=== PATIENT | female | born 2000 | race Caucasian/White ===

== ENCOUNTER → 2024-10-10 | Outpatient (CLI) | payer BC, OTHER ==
[2024-10-12 11:22] LABS: APTIMA MEDIA TYPE Urine; C. TRACHOMATIS BY TMA Negative (Negative); N. GONORRHOEAE BY TMA Negative (Negative); SPECIMEN SOURCE Urine
== END ==
LOC: LAB 11:18 → LAB SHORT 11:18
PROVIDERS: Advanced Practice Midwife
DX: Z11.3 Encounter for screening for infections with a predominantly sexual mode of transmission (principal)
CPT/HCPCS: 87491; 87591

== ENCOUNTER → 2025-03-18 | Outpatient (CLI) | payer BC, OTHER | LOC: LAB 09:32 → LAB SHORT 09:32 | DX: Z34.93 Encounter for supervision of normal pregnancy, unspecified, third trimester (principal) | CPT/HCPCS: 87081; 87150 ==

== ENCOUNTER 2025-04-03 16:27 | Inpatient (IN) | payer BC, OTHER ==
[~2025-04-03] VITALS: Ht 162.6 cm; Wt 76.3 kg
[2025-04-03] VITALS (12 sets, daily range): BP systolic 129–147; BP diastolic 71–94
[2025-04-03] MEDS ORDERED: Methylergonovine Maleate 0.2MG / ML 1ML Amp IM PRN (16:50)
[2025-04-03] MEDS ORDERED: Carboprost Tromethamine 250 MCG/ML 1ML Amp IM PRN (16:50)
[2025-04-03] MEDS ORDERED: Ondansetron HCl 2 MG / ML 2ML Vial IV PRN (16:50)
[2025-04-03] MEDS ORDERED: OXYTOCIN/RINGER'S LACTATE 500 ML IV PRN (16:50)
[2025-04-03] MEDS ORDERED: Tranexamic Acid 100 ML IV SCH (16:50)
[2025-04-03] MEDS ORDERED: Oxytocin 10 Unit / ML Vial IM PRN (16:50)
[2025-04-03] MEDS ORDERED: FentaNYL Citrate 50 MCG/ML 2 ML Injection IV PRN (16:50)
[2025-04-03] MEDS ORDERED: ePHEDrine Sulfate 50 MG/ML 1ML Injection XX PRN (16:55)
[2025-04-03] MEDS ORDERED: FentaNYL 2mcg/ml-Bup 0.1% Epd 250 ML EPI PRN (16:55)
[2025-04-03 17:20] LABS: BASOPHILS ABSOLUTE AUTO 0.02 K/mm3 (0.00-0.23); BASOPHILS PERCENT AUTO 0 % (0-2); EOSINOPHILS ABSOLUTE AUTO 0.12 K/mm3 (0.00-0.68); EOSINOPHILS PERCENT AUTO 1 % (0-6); Hematocrit 36.6 % (33.0-51.0); Hemoglobin 12.3 g/dL (11.5-16.0); IMMATURE GRAN ABSOLUTE AUTO 0.04 K/mm3 (0.00-0.10); IMMATURE GRAN PERCENT AUTO 0 % (0-1); LYMPHOCYTES ABSOLUTE AUTO 1.28 K/mm3 (0.84-5.20); LYMPHOCYTES PERCENT AUTO 13 % (21-46); MONOCYTES ABSOLUTE AUTO 0.68 K/mm3 (0.16-1.47); MONOCYTES PERCENT AUTO 7 % (4-13); Mean Corpuscular HGB Conc 33.6 g/dL (31.5-36.5); Mean Corpuscular Volume 90 fL (80-100); NEUTROPHILS ABSOLUTE AUTO 7.55 K/mm3 (1.96-9.15); NEUTROPHILS PERCENT AUTO 78 % (41-73); NRBC ABSOLUTE 0.00 K/mm3 (0.00-0.02); NRBC Auto 0.0 /100 WBC (0.0-0.2); Platelet Count 218 K/mm3 (150-400); RDW Coefficient Variation 14.0 % (11.7-14.2); RDW Standard Deviation 46.0 fL (35.1-46.3)
[2025-04-03] MEDS ORDERED: PRENATAL TABLE1 EAC2 PO (17:23)
[2025-04-04] VITALS (20 sets, daily range): BP systolic 112–156; BP diastolic 57–83
[2025-04-04] MEDS ORDERED: Polyethylene Glycol 3350 17 gm PO PRN (03:00)
[2025-04-04] MEDS ORDERED: FLU VACC TS2025-26(6MOS UP)/PF 45 MCG/0.5 ML SYRINGE IM SCH (03:00)
[2025-04-04] MEDS ORDERED: Ketorolac Tromethamine 30mg Vial IV PRN (03:00)
[2025-04-04] MEDS ORDERED: OXYTOCIN/RINGER'S LACTATE 500 ML IV PRN (03:00)
[2025-04-04] MEDS ORDERED: Witch Hazel/Glycerin PADS TOP PRN (03:00)
[2025-04-04] MEDS ORDERED: Benzocaine Topical Anesthetic Spray 60GM TOP PRN (03:00)
[2025-04-04] MEDS ORDERED: Methylergonovine Maleate 0.2MG / ML 1ML Amp IM PRN (03:05)
[2025-04-04] MEDS ORDERED: Rho(D) Immune Globulin 300 MCG / SYR IM SCH (03:05)
[2025-04-04] MEDS ORDERED: Prenatal Vit/FE Fumarate/FA 1 Tab PO SCH (09:00)
[2025-04-05 00:15] VITALS: BP 124/70
[2025-04-05 04:35] VITALS: BP 118/71
[2025-04-05] MEDS ORDERED: ACET500 PO (06:28)
[2025-04-05] MEDS ORDERED: IBUP800 PO (06:31)
[2025-04-05 09:03] VITALS: BP 124/76
== END 2025-04-05 10:48 | disposition home or self-care (01) | DRG 807 ==
LOC: OBS 16:27 → BC 16:27 → OBS 16:53 → BC 16:56
PROVIDERS: ADMIT Advanced Practice Midwife
PROC: 10E0XZZ Delivery of Products of Conception, External Approach (ICD-10-PCS; principal; 2025-04-04)
PROC: 0UQMXZZ Repair Vulva, External Approach (ICD-10-PCS; 2025-04-04)
PROC: 3E0R3BZ Introduction of Anesthetic Agent into Spinal Canal, Percutaneous Approach (ICD-10-PCS; 2025-04-04)
PROC: 00HU33Z Insertion of Infusion Device into Spinal Canal, Percutaneous Approach (ICD-10-PCS; 2025-04-04)
DX: O99.344 Other mental disorders complicating childbirth (principal); Z37.0 Single live birth; F41.9 Anxiety disorder, unspecified; O70.0 First degree perineal laceration during delivery; Z3A.38 38 weeks gestation of pregnancy
CPT/HCPCS: 59414; 85025; A9270; J1885; J2590; J3010; J7120

== ENCOUNTER → 2025-05-13 | Outpatient (CLI) | payer BC, OTHER ==
[~2025-05-13] MED LIST: ACET500 PO; IBUP800 PO; PRENATAL TABLE1 EAC2 PO
[2025-05-15 08:35] LABS: C. TRACHOMATIS BY TMA,THINPREP Negative (Negative); N. GONORRHOEAE BY TMA,THINPREP Negative (Negative)
== END ==
LOC: LAB SHORT 09:40 → LAB 09:40
PROVIDERS: Advanced Practice Midwife
DX: Z01.419 Encounter for gynecological examination (general) (routine) without abnormal findings (principal); Z11.3 Encounter for screening for infections with a predominantly sexual mode of transmission
CPT/HCPCS: 87491; 87591; G0123